=== PATIENT | male | born 1965 | race African-American/Black ===

== ENCOUNTER 2022-06-28 09:36 | Inpatient (IN) | payer MEDICAID, MEDICARE ==
[2022-06-28] VITALS (12 sets, daily range): BP systolic 108–150; BP diastolic 68–90
[~2022-06-28] VITALS: Ht 172.7 cm; Wt 100.2 kg
[~2022-06-28 09:36] MED LIST: ATOR20TA65 PO; CINA30 PO; FOLI1TAB63 PO; METO-539 PO; REN800 PO
[2022-06-28 10:23] LABS: BASOPHILS % 1.1 % (0.0-2.0); CHLORIDE 97 mEq/L (98-107); EOSINOPHILS % 1.4 % (0.0-5.0); HEMATOCRIT. 36.2 % (42.0-52.0); HEMOGLOBIN. 11.6 g/dL (14.0-18.0); MEAN CORPUSCULAR HEMOGLOBIN 26.6 pg (28.0-32.0); MEAN CORPUSCULAR VOLUME 83.3 fL (80.0-94.0); MEAN PLATELET VOLUME 9.1 fl (7.4-10.4); MONOCYTES % 8.4 % (2.0-8.0); NEUTROPHILS % 66.1 % (40.0-76.0); PLATELET 164 x1000/uL (130-400); RED BLOOD CELL COUNT 4.35 mill/uL (4.7-6.1)
[2022-06-28] MEDS ORDERED: ADENOSINE 3 MG/ML 2ML VIAL IV ONE (10:30)
[2022-06-28] MEDS ORDERED: DILTIAZEM HCL 5MG/ML 5ML VIAL IV ONE (11:00)
[2022-06-28] MEDS ORDERED: LORAZEPAM 2MG/ML CPJ IV ONE (11:15)
[2022-06-28] MEDS ORDERED: AMIODARONE HCL 150 MG in DEXT 5% WATER 100 ML IV ONE (11:15)
[2022-06-28] MEDS ORDERED: SODIUM BICARBONATE 8.4% 1 MEQ/ML 50ML SYR IV ONE (11:30)
[2022-06-28] MEDS ORDERED: SODIUM CHLORIDE 0.9% 250 ML IV ONE (11:30)
[2022-06-28] MEDS ORDERED: DEXTROSE 50% WATER 50ML SYRINGE IV ONE (11:30)
[2022-06-28] MEDS ORDERED: INSULIN REGULAR (HUMULIN R) 300UNITS/3ML VIAL IV ONE (11:30)
[2022-06-28] MEDS ORDERED: CALCIUM CHLORIDE 1GM/10ML SYR IV ONE (11:30)
[2022-06-28] MEDS ORDERED: SODIUM POLYSTYRENE SULFONATE 15 G/60 ML BOT PO ONE (11:30)
[2022-06-28] MEDS ORDERED: INSULIN REGULAR (HUMULIN R) 300UNITS/3ML VIAL IV NR (13:15)
[2022-06-28] MEDS: LORAZEPAM 2MG/ML CPJ IV NR ×2 (13:15→13:26)
[2022-06-28] MEDS: ENOXAPARIN 100MG/ML SYR SUBCUT SCH (14:10)
[2022-06-28 15:08] LABS: PHOSPHORUS 5.3 mg/dL (2.5-4.9); T4 FREE 0.95 ng/dL (0.76-1.46)
[2022-06-28 15:29] LABS: HEPATITIS B SURFACE ANTIGEN NEGATIVE
[2022-06-28] MEDS ORDERED: DIPHENHYDRAMINE 50MG/ML VIAL IV PRN (15:45)
[2022-06-28] MEDS ORDERED: MAGNESIUM/ALUMINUM HYDROXIDE/SIMETHICONE 30ML UDC PO PRN (15:45)
[2022-06-28] MEDS ORDERED: ACETAMINOPHEN 325MG TABLET PO PRN (15:45)
[2022-06-28] MEDS ORDERED: ONDANSETRON HCL 4MG/2ML INJ IV PRN (15:45)
[2022-06-28] MEDS ORDERED: CLONIDINE 0.1MG TABLET PO PRN (15:45)
[2022-06-28] MEDS: AMIODARONE HCL 200 MG TABLET PO SCH (17:34)
[2022-06-28] MEDS: SEVELAMER CARBONATE 800 MG TABLET PO SCH (17:35)
[2022-06-28 17:39] LABS: PHOSPHORUS 5.4 mg/dL (2.5-4.9)
[2022-06-28] MEDS ORDERED: HYDRALAZINE 20MG/ML VIAL IV PRN (17:45)
[2022-06-28] MEDS ORDERED: PNEUMOCOCCAL 23-VAL P-SAC VAC 0.5 ML IM ONE (20:00)
[2022-06-28] MEDS ORDERED: LISINOPRIL 20MG TABLET PO SCH (21:00)
[2022-06-28] MEDS ORDERED: ZOLPIDEM TARTRATE 5MG TABLET PO PRN (21:00)
[2022-06-28] MEDS ORDERED: INFLUENZA VACCINE 05/PF 0.5 ML SYRINGE IM ONE (21:00)
[2022-06-28] MEDS ORDERED: ATORVASTATIN CALCIUM 20MG TABLET PO SCH (21:00)
[2022-06-28] MEDS: METOPROLOL TARTRATE 50MG TABLET PO SCH (22:27)
[2022-06-28] MEDS: SODIUM CHLORIDE 0.9% INJ 3ML FLUSH IVF SCH (23:10)
[2022-06-29] VITALS (18 sets, daily range): BP systolic 98–161; BP diastolic 60–94
[2022-06-29 06:25] LABS: BASOPHILS % 0.7 % (0.0-2.0); EOSINOPHILS % 1.9 % (0.0-5.0); HEMATOCRIT. 35.7 % (42.0-52.0); HEMOGLOBIN. 11.5 g/dL (14.0-18.0); LYMPHOCYTES % 34.9 % (20.0-50.0); MEAN CORPUSCULAR HEMOGLOBIN 26.6 pg (28.0-32.0); MEAN CORPUSCULAR VOLUME 82.7 fL (80.0-94.0); MEAN PLATELET VOLUME 10.3 fl (7.4-10.4); MONOCYTES % 12.1 % (2.0-8.0); NEUTROPHILS % 50.4 % (40.0-76.0); PLATELET 155 x1000/uL (130-400); RED BLOOD CELL COUNT 4.32 mill/uL (4.7-6.1)
[2022-06-29 06:30] LABS: PROTHROMBIN TIME 11.2 sec (9.6-11.0)
[2022-06-29] MEDS ORDERED: DILTIAZEM HCL 5MG/ML 5ML VIAL IV NR (06:45)
[2022-06-29] MEDS: SODIUM CHLORIDE 0.9% INJ 3ML FLUSH IVF SCH ×3 (07:08→21:22)
[2022-06-29] MEDS: AMIODARONE HCL 200 MG TABLET PO SCH ×3 (07:44→18:17)
[2022-06-29] MEDS: METOPROLOL TARTRATE 50MG TABLET PO SCH ×2 (07:45→21:25)
[2022-06-29] MEDS: SEVELAMER CARBONATE 800 MG TABLET PO SCH ×3 (07:48→18:17)
[2022-06-29] MEDS: ENOXAPARIN 100MG/ML SYR SUBCUT SCH (07:54)
[2022-06-29] MEDS: DILTIAZEM HCL 60MG TABLET PO SCH ×4 (08:37→23:57)
[2022-06-29] MEDS: CINACALCET HCL 30MG TABLET PO SCH (08:37)
[2022-06-29] MEDS ORDERED: SODIUM POLYSTYRENE SULFONATE 15 G/60 ML BOT PO NR (09:00)
[2022-06-29] MEDS ORDERED: METOPROLOL TARTRATE 5MG/5ML VIAL IV NR (10:00)
[2022-06-29] MEDS ORDERED: DILTIAZEM HCL 60MG TABLET PO SCH (12:00)
[2022-06-29] MEDS: FOLIC ACID/VITAMIN B COMP W-C TABLET PO SCH (18:17)
[2022-06-29] MEDS ORDERED: ATORVASTATIN CALCIUM 20MG TABLET PO SCH (21:00)
[2022-06-29] MEDS ORDERED: ATORVASTATIN CALCIUM 40MG TABLET PO SCH (21:00)
[2022-06-29] MEDS: ATORVASTATIN CALCIUM 40MG TABLET PO SCH (21:24)
[2022-06-30] VITALS: BP 111/75
[2022-06-30 04:00] VITALS: BP 130/67
[2022-06-30] MEDS: SODIUM CHLORIDE 0.9% INJ 3ML FLUSH IVF SCH ×3 (06:23→21:46)
[2022-06-30] MEDS: DILTIAZEM HCL 60MG TABLET PO SCH ×4 (06:24→23:58)
[2022-06-30 06:57] LABS: BASOPHILS % 0.7 % (0.0-2.0); EOSINOPHILS % 1.3 % (0.0-5.0); HEMATOCRIT. 32.2 % (42.0-52.0); HEMOGLOBIN. 10.5 g/dL (14.0-18.0); LYMPHOCYTES % 22.5 % (20.0-50.0); MEAN CORPUSCULAR HEMOGLOBIN 26.8 pg (28.0-32.0); MEAN CORPUSCULAR VOLUME 81.9 fL (80.0-94.0); MEAN PLATELET VOLUME 9.4 fl (7.4-10.4); MONOCYTES % 10.4 % (2.0-8.0); NEUTROPHILS % 65.1 % (40.0-76.0); PLATELET 142 x1000/uL (130-400); RED BLOOD CELL COUNT 3.93 mill/uL (4.7-6.1); RED CELL DISTRIBUTION WIDTH 15.9 % (11.6-14.6)
[2022-06-30 08:00] VITALS: BP 120/71
[2022-06-30] MEDS: FOLIC ACID/VITAMIN B COMP W-C TABLET PO SCH (09:33)
[2022-06-30] MEDS: METOPROLOL TARTRATE 50MG TABLET PO SCH ×2 (09:33→21:48)
[2022-06-30] MEDS: AMIODARONE HCL 200 MG TABLET PO SCH ×3 (09:33→18:06)
[2022-06-30] MEDS: SEVELAMER CARBONATE 800 MG TABLET PO SCH ×3 (09:33→18:06)
[2022-06-30] MEDS: ENOXAPARIN 100MG/ML SYR SUBCUT SCH (09:33)
[2022-06-30] MEDS: CINACALCET HCL 30MG TABLET PO SCH (09:33)
[2022-06-30 12:00] VITALS: BP 148/98
[2022-06-30 16:00] VITALS: BP 118/68
[2022-06-30 20:00] VITALS: BP 121/81
[2022-06-30] MEDS: ATORVASTATIN CALCIUM 40MG TABLET PO SCH (21:46)
[2022-07-01] VITALS (12 sets, daily range): BP systolic 105–144; BP diastolic 55–93
[2022-07-01] MEDS: SODIUM CHLORIDE 0.9% INJ 3ML FLUSH IVF SCH ×3 (06:52→22:32)
[2022-07-01] MEDS: DILTIAZEM HCL 60MG TABLET PO SCH ×3 (06:52→17:26)
[2022-07-01 06:57] LABS: BASOPHILS % 0.5 % (0.0-2.0); EOSINOPHILS % 1.4 % (0.0-5.0); HEMATOCRIT. 31.9 % (42.0-52.0); HEMOGLOBIN. 10.5 g/dL (14.0-18.0); MEAN CORPUSCULAR HEMOGLOBIN 26.9 pg (28.0-32.0); MEAN CORPUSCULAR VOLUME 81.6 fL (80.0-94.0); MEAN PLATELET VOLUME 9.5 fl (7.4-10.4); MONOCYTES % 11.1 % (2.0-8.0); PLATELET 139 x1000/uL (130-400); RED BLOOD CELL COUNT 3.91 mill/uL (4.7-6.1); RED CELL DISTRIBUTION WIDTH 15.6 % (11.6-14.6)
[2022-07-01] MEDS: SEVELAMER CARBONATE 800 MG TABLET PO SCH ×3 (09:25→17:26)
[2022-07-01] MEDS: FOLIC ACID/VITAMIN B COMP W-C TABLET PO SCH (09:25)
[2022-07-01] MEDS: METOPROLOL TARTRATE 50MG TABLET PO SCH ×2 (09:26→21:52)
[2022-07-01] MEDS: CINACALCET HCL 30MG TABLET PO SCH (09:26)
[2022-07-01] MEDS: AMIODARONE HCL 200 MG TABLET PO SCH ×3 (09:26→17:26)
[2022-07-01] MEDS: ENOXAPARIN 100MG/ML SYR SUBCUT SCH (09:26)
[2022-07-01] MEDS: ATORVASTATIN CALCIUM 40MG TABLET PO SCH (21:52)
[2022-07-02] VITALS: BP 124/77
[2022-07-02] MEDS: DILTIAZEM HCL 60MG TABLET PO SCH ×4 (00:11→15:14)
[2022-07-02 04:00] VITALS: BP 112/78
[2022-07-02] MEDS: SODIUM CHLORIDE 0.9% INJ 3ML FLUSH IVF SCH ×3 (06:11→21:29)
[2022-07-02 07:08] LABS: BASOPHILS % 0.5 % (0.0-2.0); EOSINOPHILS % 2.3 % (0.0-5.0); HEMATOCRIT. 32.9 % (42.0-52.0); HEMOGLOBIN. 10.7 g/dL (14.0-18.0); LYMPHOCYTES % 25.7 % (20.0-50.0); MEAN CORPUSCULAR HEMOGLOBIN 26.8 pg (28.0-32.0); MEAN PLATELET VOLUME 9.8 fl (7.4-10.4); NEUTROPHILS % 59.5 % (40.0-76.0); PLATELET 143 x1000/uL (130-400); RED BLOOD CELL COUNT 4.01 mill/uL (4.7-6.1); RED CELL DISTRIBUTION WIDTH 15.5 % (11.6-14.6)
[2022-07-02 08:01] VITALS: BP 120/66
[2022-07-02] MEDS: ENOXAPARIN 100MG/ML SYR SUBCUT SCH (08:45)
[2022-07-02] MEDS: AMIODARONE HCL 200 MG TABLET PO SCH ×3 (08:47→15:14)
[2022-07-02] MEDS: FOLIC ACID/VITAMIN B COMP W-C TABLET PO SCH (08:47)
[2022-07-02] MEDS: SEVELAMER CARBONATE 800 MG TABLET PO SCH ×3 (08:47→15:15)
[2022-07-02] MEDS: METOPROLOL TARTRATE 50MG TABLET PO SCH ×2 (08:48→21:29)
[2022-07-02] MEDS: CINACALCET HCL 30MG TABLET PO SCH (08:48)
[2022-07-02] MEDS ORDERED: NITROGLYCERIN 50MCG/ML 10ML VIAL (CATH LAB) IV ONE (09:49)
[2022-07-02] MEDS ORDERED: NICARDIPINE 100MCG/ML 10ML VIAL (CATH LAB) IV ONE (09:49)
[2022-07-02 12:00] VITALS: BP 126/87
[2022-07-02] MEDS ORDERED: LIDOCAINE HCL 1% 20ML VIAL (Pyxis) INJ ONE (12:17)
[2022-07-02] MEDS ORDERED: ASPIRIN/SOD BICARB/CITRIC ACID 324MG TAB EFF ONE (12:18)
[2022-07-02] MEDS ORDERED: MIDAZOLAM HCL 2 MG/2 ML VIAL ONE (12:18)
[2022-07-02] MEDS ORDERED: FENTANYL CITRATE/PF 50MCG/ML 2ML VIAL ONE (12:18)
[2022-07-02] MEDS ORDERED: IODIXANOL 320MG/ML 100 ML BOTTLE IV ONE (12:18)
[2022-07-02] MEDS ORDERED: HEPARIN 1000 UNITS/ML 10ML ONE (12:18)
[2022-07-02] MEDS ORDERED: ATROPINE SULFATE 1MG/10ML SYR IV PRN (13:30)
[2022-07-02] MEDS ORDERED: ONDANSETRON HCL 4MG/2ML INJ IV PRN (13:30)
[2022-07-02] MEDS ORDERED: MORPHINE SULFATE 2 MG/ML CPJ (NOT FOR IM USE) IV PRN (13:30)
[2022-07-02] MEDS ORDERED: ACETAMINOPHEN 325MG TABLET PO PRN (13:30)
[2022-07-02] MEDS ORDERED: NALOXONE HCL 0.4MG/ML VIAL IV PRN (13:45)
[2022-07-02 16:00] VITALS: BP 151/78
[2022-07-02 20:00] VITALS: BP 139/59
[2022-07-02] MEDS: ATORVASTATIN CALCIUM 40MG TABLET PO SCH (21:29)
[2022-07-03] VITALS (16 sets, daily range): BP systolic 123–172; BP diastolic 42–86
[2022-07-03] MEDS: DILTIAZEM HCL 60MG TABLET PO SCH ×4 (00:13→16:40)
[2022-07-03] MEDS: SODIUM CHLORIDE 0.9% INJ 3ML FLUSH IVF SCH ×2 (06:06→13:24)
[2022-07-03 06:28] LABS: BASOPHILS % 0.7 % (0.0-2.0); EOSINOPHILS % 2.8 % (0.0-5.0); HEMATOCRIT. 31.4 % (42.0-52.0); HEMOGLOBIN. 10.3 g/dL (14.0-18.0); MEAN CORPUSCULAR HEMOGLOBIN 26.9 pg (28.0-32.0); MEAN CORPUSCULAR VOLUME 81.6 fL (80.0-94.0); MEAN PLATELET VOLUME 9.5 fl (7.4-10.4); MONOCYTES % 11.1 % (2.0-8.0); NEUTROPHILS % 56.4 % (40.0-76.0); PLATELET 163 x1000/uL (130-400); RED BLOOD CELL COUNT 3.85 mill/uL (4.7-6.1); RED CELL DISTRIBUTION WIDTH 15.3 % (11.6-14.6)
[2022-07-03] MEDS: METOPROLOL TARTRATE 50MG TABLET PO SCH (08:01)
[2022-07-03] MEDS: AMIODARONE HCL 200 MG TABLET PO SCH ×3 (08:25→16:41)
[2022-07-03] MEDS: FOLIC ACID/VITAMIN B COMP W-C TABLET PO SCH (11:23)
[2022-07-03] MEDS: SEVELAMER CARBONATE 800 MG TABLET PO SCH ×3 (11:23→16:41)
[2022-07-03] MEDS: ENOXAPARIN 100MG/ML SYR SUBCUT SCH (11:23)
[2022-07-03] MEDS: CINACALCET HCL 30MG TABLET PO SCH (11:25)
[2022-07-03 12:30] LABS: *AMPHETAMINES SCREEN URINE NEGATIVE (NEGATIVE); *BARBITURATES SCREEN URINE NEGATIVE (NEGATIVE); *BENZODIAZEPINES SCREEN URINE NEGATIVE (NEGATIVE); *COCAINE SCREEN URINE NEGATIVE (NEGATIVE); CANNABINOID URINE SCREEN NEGATIVE (NEGATIVE); METHADONE URINE SCREEN NEGATIVE (NEGATIVE); OPIATES URINE SCREEN NEGATIVE (NEGATIVE); PHENCYCLIDINE URINE SCREEN NEGATIVE (NEGATIVE)
[2022-07-03] MEDS ORDERED: ATORVASTATIN CALCIUM 40MG TABLET PO SCH (21:00)
== END 2022-07-03 17:00 | disposition home or self-care (01) | DRG 286 ==
LOC: ER 09:36 → MICUSO 12:31 → EDBEDREQTM 12:35 → EDBEDREQ 12:35 → 3WST 17:59
PROVIDERS: ADMIT Internal Medicine; ATTEND Internal Medicine
PROC: 5A1D70Z Performance of Urinary Filtration, Intermittent, Less than 6 Hours Per Day (ICD-10-PCS; 2022-06-28)
PROC: 5A1D70Z Performance of Urinary Filtration, Intermittent, Less than 6 Hours Per Day (ICD-10-PCS; 2022-06-29)
PROC: 5A1D70Z Performance of Urinary Filtration, Intermittent, Less than 6 Hours Per Day (ICD-10-PCS; 2022-07-01)
PROC: 4A023N7 Measurement of Cardiac Sampling and Pressure, Left Heart, Percutaneous Approach (ICD-10-PCS; principal; 2022-07-02)
PROC: B211YZZ Fluoroscopy of Multiple Coronary Arteries using Other Contrast (ICD-10-PCS; 2022-07-02)
PROC: 5A1D70Z Performance of Urinary Filtration, Intermittent, Less than 6 Hours Per Day (ICD-10-PCS; 2022-07-03)
DX: I47.1 Supraventricular tachycardia (principal); N18.6 End stage renal disease; I13.11 Hypertensive heart and chronic kidney disease without heart failure, with stage 5 chronic kidney disease, or end stage renal disease; I48.91 Unspecified atrial fibrillation; I48.4 Atypical atrial flutter; Z20.822 Contact with and (suspected) exposure to COVID-19; E87.5 Hyperkalemia; E11.22 Type 2 diabetes mellitus with diabetic chronic kidney disease; I25.10 Atherosclerotic heart disease of native coronary artery without angina pectoris; E78.00 Pure hypercholesterolemia, unspecified; D63.1 Anemia in chronic kidney disease; F17.200 Nicotine dependence, unspecified, uncomplicated; I45.10 Unspecified right bundle-branch block; Z99.2 Dependence on renal dialysis; Z82.49 Family history of ischemic heart disease and other diseases of the circulatory system; Z79.899 Other long term (current) drug therapy; Z79.4 Long term (current) use of insulin
CPT/HCPCS: 36415; 71045; 80048; 80053; 80061; 80076; 80305; 82962; 83735; 83880; 84100; 84132; 84439; 84443; 84481; 84484; 85025; 86705; 86709; 86803; 87340; 90686; 90732; 90935; 93005; 93306; 93458; 93923; 99291; C1769; C1893; J0153; J0282; J0360; J1644; J1650; J2060; J2250; J3010; J3490; J7050; J7060; Q9967

== ENCOUNTER 2023-12-10 09:31 | Inpatient (IN) | payer MEDICARE ==
[~2023-12-10] VITALS: Ht 175.3 cm; Wt 98.9 kg
[2023-12-10] MEDS: HYDRALAZINE 20MG/ML VIAL IV ONE (10:10)
[2023-12-10 10:15] LABS: BASOPHILS % 0.7 % (0.0-2.0); DIFFERENTIAL COMMENT 0; HEMATOCRIT. 34.5 % (42.0-52.0); HEMOGLOBIN. 10.8 g/dL (14.0-18.0); LYMPHOCYTES % 23.8 % (20.0-50.0); MEAN CORPUSCULAR HEMOGLOBIN 24.1 pg (28.0-32.0); MEAN CORPUSCULAR HGB CONC 31.2 g/dL (31.0-37.0); MEAN CORPUSCULAR VOLUME 77.4 fL (80.0-94.0); MEAN PLATELET VOLUME 8.7 fl (7.4-10.4); MONOCYTES % 6.4 % (2.0-8.0); NEUTROPHILS % 67.1 % (40.0-76.0); PLATELET 201 x1000/uL (130-400); RED BLOOD CELL COUNT 4.46 mill/uL (4.7-6.1); RED CELL DISTRIBUTION WIDTH 17.3 % (11.6-14.6); WHITE BLOOD COUNT 11.4 x1000/uL (4.5-11.0)
[2023-12-10 10:27] LABS: CHLORIDE 102 mEq/L (98-107); POTASSIUM 5.4 mEq/L (3.5-5.1); PROTHROMBIN TIME 10.9 sec (9.6-11.0); SODIUM 135 mEq/L (136-145)
[2023-12-10 10:28] LABS: CARBON DIOXIDE 19 mEq/L (21-32)
[2023-12-10 10:29] LABS: CALCIUM 8.9 mg/dL (8.7-10.4)
[2023-12-10 10:33] LABS: GLUCOSE 120 mg/dL (70-105); UREA NITROGEN BLOOD 53 mg/dL (9-23)
[2023-12-10 10:45] LABS: CREATININE 14.9 mg/dL (0.6-1.3); TROPONIN I HIGH SENSITIVITY 123 ng/L (3.0-53)
[2023-12-10] MEDS: AZITHROMYCIN 500MG/250ML 250 ML IV SCH (12:21)
[2023-12-10 12:47] LABS: TROPONIN I HIGH SENSITIVITY 163 ng/L (3.0-53)
[2023-12-10 12:55] VITALS: BP 203/111; PULSE 73; RESP 18; TEMP 98
[2023-12-10 13:00] VITALS: BP 203/111; PULSE 73
[2023-12-10] MEDS: NITROGLYCERIN 50MG PREMIX 250 ML IV ONE (13:37)
[2023-12-10] MEDS: CEFTRIAXONE 2GM/50ML 50 ML IV ONE (13:39)
[2023-12-10 13:55] LABS: HEPATITIS B SURFACE ANTIGEN NEGATIVE (Negative)
[2023-12-10 14:00] VITALS: BP 190/104; PULSE 69
[2023-12-10 14:02] LABS: TROPONIN I HIGH SENSITIVITY 138 ng/L (3.0-53)
[2023-12-10 14:15] LABS: HEPATITIS A AB IGM NEGATIVE (Negative)
[2023-12-10 14:16] LABS: HEPATITIS B CORE AB IGM NEGATIVE (Negative); HEPATITIS C AB NON REACTIVE (Neg) (Negative)
[2023-12-10] MEDS: SEVELAMER CARBONATE 800 MG TABLET PO SCH (14:45)
[2023-12-10 15:00] VITALS: BP 179/113; PULSE 78
[2023-12-10 15:30] VITALS: BP 155/100; PULSE 78
[2023-12-10 15:45] VITALS: BP 185/105; PULSE 74; RESP 18; TEMP 98
[2023-12-10] MEDS ORDERED: ZOLPIDEM TARTRATE 5MG TABLET PO PRN (17:15)
[2023-12-10] MEDS ORDERED: ACETAMINOPHEN 325MG TABLET PO PRN (17:15)
[2023-12-10] MEDS ORDERED: DIPHENHYDRAMINE 50MG/ML VIAL IV PRN (17:15)
[2023-12-10] MEDS ORDERED: ONDANSETRON HCL 4MG/2ML INJ IV PRN (17:15)
[2023-12-10] MEDS: ACETAMINOPHEN 325MG TABLET PO PRN (17:40)
[2023-12-10] MEDS: HYDRALAZINE 20MG/ML VIAL IV PRN (19:54)
[2023-12-10] MEDS: METOPROLOL TARTRATE 50MG TABLET PO SCH (21:07)
[2023-12-10] MEDS: ATORVASTATIN CALCIUM 20MG TABLET PO SCH (21:08)
[2023-12-10] MEDS: NITROGLYCERIN 50MG PREMIX 250 ML IV PRN (21:52)
[2023-12-10] MEDS: SODIUM CHLORIDE 0.9% 3ML FLUSH IVF SCH (22:10)
[2023-12-11] VITALS (64 sets, daily range): BP systolic 108–197; BP diastolic 49–106; PULSE 69–97; RESP 12–25; TEMP 97.5–99.5
[2023-12-11] MEDS: LISINOPRIL 40MG TABLET PO SCH (00:29)
[2023-12-11] MEDS: FOLIC ACID/VITAMIN B COMP W-C TABLET PO SCH (08:13)
[2023-12-11] MEDS: DOXAZOSIN MESYLATE 2MG TABLET PO SCH (08:50)
[2023-12-11 10:11] LABS: BASOPHILS % 0.7 % (0.0-2.0); DIFFERENTIAL COMMENT 0; EOSINOPHILS % 1.4 % (0.0-5.0); HEMATOCRIT. 30.5 % (42.0-52.0); HEMOGLOBIN. 9.8 g/dL (14.0-18.0); MEAN CORPUSCULAR HEMOGLOBIN 24.7 pg (28.0-32.0); MEAN CORPUSCULAR HGB CONC 32.1 g/dL (31.0-37.0); MEAN CORPUSCULAR VOLUME 76.9 fL (80.0-94.0); MONOCYTES % 9.2 % (2.0-8.0); NEUTROPHILS % 77.7 % (40.0-76.0); PLATELET 131 x1000/uL (130-400); RED BLOOD CELL COUNT 3.96 mill/uL (4.7-6.1); RED CELL DISTRIBUTION WIDTH 17.2 % (11.6-14.6); WHITE BLOOD COUNT 6.5 x1000/uL (4.5-11.0)
[2023-12-11 10:13] LABS: POTASSIUM 5.6 mEq/L (3.5-5.1)
[2023-12-11 10:15] LABS: CALCIUM 8.5 mg/dL (8.7-10.4)
[2023-12-11 10:23] LABS: CREATININE 15.7 mg/dL (0.6-1.3)
[2023-12-11] MEDS: HYDRALAZINE HCL 50MG TABLET PO SCH (13:09)
[2023-12-11] MEDS: CLONIDINE 0.1MG TABLET PO PRN (16:14)
[2023-12-11 20:59] LABS: POTASSIUM 4.4 mEq/L (3.5-5.1)
[2023-12-11] MEDS: ATORVASTATIN CALCIUM 40MG TABLET PO SCH (21:39)
[2023-12-12] VITALS: BP 134/74; PULSE 77; RESP 17; TEMP 99
[2023-12-12 01:47] VITALS: BP 189/89; PULSE 97; RESP 20; TEMP 98.8
[2023-12-12 04:00] VITALS: BP 151/72; PULSE 94; RESP 19; TEMP 98.1
[2023-12-12 06:40] LABS: POTASSIUM 4.3 mEq/L (3.5-5.1)
[2023-12-12 06:41] LABS: CALCIUM 8.4 mg/dL (8.7-10.4)
[2023-12-12 06:44] LABS: BASOPHILS % 0.8 % (0.0-2.0); DIFFERENTIAL COMMENT 0; HEMATOCRIT. 27.9 % (42.0-52.0); LYMPHOCYTES % 17.4 % (20.0-50.0); MEAN CORPUSCULAR HEMOGLOBIN 24.8 pg (28.0-32.0); MEAN CORPUSCULAR HGB CONC 32.4 g/dL (31.0-37.0); MEAN CORPUSCULAR VOLUME 76.7 fL (80.0-94.0); MEAN PLATELET VOLUME 9.1 fl (7.4-10.4); MONOCYTES % 11.7 % (2.0-8.0); NEUTROPHILS % 68.1 % (40.0-76.0); PLATELET 119 x1000/uL (130-400); RED BLOOD CELL COUNT 3.63 mill/uL (4.7-6.1); RED CELL DISTRIBUTION WIDTH 16.9 % (11.6-14.6); WHITE BLOOD COUNT 5.2 x1000/uL (4.5-11.0)
[2023-12-12 06:58] LABS: CREATININE 13.8 mg/dL (0.6-1.3)
[2023-12-12 08:00] VITALS: BP 172/83; PULSE 95; RESP 18; TEMP 98.1
[2023-12-12 12:00] VITALS: BP 136/71; PULSE 78; RESP 17; TEMP 97.7
[2023-12-12 16:00] VITALS: BP 118/64; PULSE 87; RESP 17; TEMP 97.7
[2023-12-13] VITALS (8 sets, daily range): BP systolic 125–187; BP diastolic 74–89; PULSE 72–88; RESP 18–19; TEMP 97.9–99.3; O2SAT 98
[2023-12-13 05:59] LABS: POTASSIUM 4.5 mEq/L (3.5-5.1)
[2023-12-13 06:00] LABS: CALCIUM 8.5 mg/dL (8.7-10.4)
== END 2023-12-13 16:25 | disposition home or self-care (01) | DRG 640 ==
LOC: ER 09:31 → EDBEDREQTM 14:18 → EDBEDREQSVC 14:18 → CVICU 12-11 07:32 → 7EST 12-12 01:30
PROVIDERS: ADMIT Internal Medicine; ATTEND Internal Medicine
PROC: 5A1D70Z Performance of Urinary Filtration, Intermittent, Less than 6 Hours Per Day (ICD-10-PCS; principal; 2023-12-11)
PROC: 5A1D70Z Performance of Urinary Filtration, Intermittent, Less than 6 Hours Per Day (ICD-10-PCS; 2023-12-13)
DX: E87.70 Fluid overload, unspecified (principal); J96.01 Acute respiratory failure with hypoxia; N18.6 End stage renal disease; I12.0 Hypertensive chronic kidney disease with stage 5 chronic kidney disease or end stage renal disease; I16.1 Hypertensive emergency; I48.92 Unspecified atrial flutter; E87.1 Hypo-osmolality and hyponatremia; E11.22 Type 2 diabetes mellitus with diabetic chronic kidney disease; D63.8 Anemia in other chronic diseases classified elsewhere; E87.5 Hyperkalemia; E78.00 Pure hypercholesterolemia, unspecified; Z99.2 Dependence on renal dialysis; I25.10 Atherosclerotic heart disease of native coronary artery without angina pectoris; D72.829 Elevated white blood cell count, unspecified; F17.200 Nicotine dependence, unspecified, uncomplicated; Z82.49 Family history of ischemic heart disease and other diseases of the circulatory system
CPT/HCPCS: 36415; 71045; 80048; 83880; 84132; 84484; 85025; 86705; 86709; 87340; 90935; 93005; 99291; J0360; J0456; J0696; J3490

== ENCOUNTER 2024-10-06 13:57 | Emergency (ER) | payer MEDICARE ==
[~2024-10-06] VITALS: Ht 175.3 cm; Wt 90.7 kg
[~2024-10-06 13:57] MED LIST changes: -METO-539 PO
[2024-10-06 14:10] VITALS: O2SAT 99
[2024-10-06 17:37] VITALS: BP 155/86; PULSE 75; RESP 18; TEMP 36.8; O2SAT 99
== END 2024-10-06 17:46 | disposition home or self-care (01) ==
LOC: ER 13:57
DX: M79.5 Residual foreign body in soft tissue (principal); I10 Essential (primary) hypertension; Z79.899 Other long term (current) drug therapy; Z99.2 Dependence on renal dialysis
CPT/HCPCS: 99281